=== PATIENT | female | born 1970 | race Asian ===

== ENCOUNTER 2024-04-17 19:42 | Inpatient (IN) | payer MEDICAID ==
[~2024-04-17] VITALS: Ht 154.9 cm; Wt 46.1 kg
[2024-04-17 19:42] VITALS: BP 114/80; PULSE 60; RESP 16; TEMP 98.3; O2SAT 99
[2024-04-17 20:32] LABS: BASOPHILS # (AUTO) 0.1 K/uL (0.00-0.22); BASOPHILS % (AUTO) 0.7 % (0.0-2.0); EOSINOPHILS # (AUTO) 0.1 K/uL (0-0.4); EOSINOPHILS % (AUTO) 0.8 % (0.0-4.0); HEMATOCRIT 38.9 % (36-48); HEMOGLOBIN 12.7 g/dL (12.0-16.0); LYMPHOCYTES # (AUTO) 0.7 K/uL (2.5-16.5); MEAN CORPUSCULAR HEMOGLOBIN 29 pg (27-31); MEAN CORPUSCULAR HGB CONC 33 g/dL (33-37); MEAN CORPUSCULAR VOLUME 88.6 fL (80-94); MONOCYTES # (AUTO) 0.5 K/uL (0.8-1.0); MONOCYTES % (AUTO) 5.6 % (1.7-9.3); NEUTROPHILS # (AUTO) 8.3 K/uL (1.8-7.7); NEUTROPHILS % (AUTO) 85.3 % (42.2-75.2); PLATELET COUNT (AUTO) 276 K/uL (140-450); RED BLOOD CELL COUNT(AUTO) 4.39 MIL/uL (4.20-5.40); RED CELL DISTRIBUTION WIDTH 16.3 % (11.6-13.7); WHITE BLOOD COUNT (AUTO) 9.7 K/uL (4.8-10.8)
[2024-04-17 20:34] LABS: LYMPHOCYTES % (AUTO) 7.6 % (20.5-51.1)
[2024-04-17 20:38] LABS: APPEARANCE,URINE CLEAR (CLEAR); BILIRUBIN,URINE 2+ (NEGATIVE); BLOOD, URINE TRACE-I (NEGATIVE); LEUKOCYTE ESTERASE ,URINE NEGATIVE (NEGATIVE); NITRITE, URINE NEGATIVE (NEGATIVE); PROTEIN,URINE TRACE (NEGATIVE); UGLUCOSE NEGATIVE (NEGATIVE)
[2024-04-17 20:39] LABS: COLOR,URINE ORANGE (YELLOW)
[2024-04-17 20:47] LABS: FLU A ANTIGEN negative (NEGATIVE); FLU B ANTIGEN negative (NEGATIVE)
[2024-04-17 20:48] LABS: ICTOTEST NEGATIVE (NEGATIVE)
[2024-04-17 20:49] LABS: ANION GAP 14.1 (8-16); CALCIUM 9.3 mg/dL (8.5-10.1); CARBON DIOXIDE 28.1 mmol/L (21-32); CREATININE 0.4 mg/dL (0.6-1.3); POTASSIUM 3.2 mmol/L (3.5-5.1)
[2024-04-17 20:50] LABS: BACTERIA,URINE FEW /HPF (None Seen); CALCIUM OXALATE CRYSTALS,UR 0-10 /HPF (None Seen); SQUAMOUS EPITHELIAL CELL,UR 0-3 (FEW) /LPF (0-3 (FEW)); WBC,URINE 0-5 /HPF (0-5)
[2024-04-17 20:51] LABS: AMPHETAMINE, URINE NEGATIVE ng/ml (NEG <=1000); BARBITURATE, URINE NEGATIVE ng/ml (NEG <=200); BENZODIAZEPINE, URINE NEGATIVE ng/mL (NEG <=200); CANNABINOID, URINE NEGATIVE ng/mL (NEG <=50); COCAINE, URINE NEGATIVE ng/mL (NEG <=300); OPIATE, URINE NEGATIVE ng/mL (NEG <=2000); PHENCYCLIDINE SCREEN,URINE NEGATIVE ng/mL (NEG <=25)
[2024-04-17 20:58] LABS: ALANINE AMINOTRANSFERASE 21 U/L (12-78); ALBUMIN 2.8 g/dL (3.4-5.0); ALKALINE PHOSPHATASE 111 U/L (50-136); ASPARTATE AMINOTRANSFERASE 22 U/L (15-37); BILIRUBIN,DIRECT 0.1 mg/dL (0.0-0.3); CREATINE KINASE, TOTAL 14 U/L (26-192); TOTAL BILIRUBIN 0.4 mg/dL (0.0-1.0); TOTAL PROTEIN, SERUM 6.5 g/dL (6.4-8.2)
[2024-04-17] MEDS: DEXAMETHASONE 10 MG/ML VIAL IVP ONE (21:57)
[2024-04-17] MEDS ORDERED: ONDA-188 PO (22:19)
[2024-04-17] MEDS ORDERED: IBUP-2213 PO (22:19)
[2024-04-17] MEDS ORDERED: ACET-9527 PO (22:19)
[2024-04-17] MEDS ORDERED: PANT40EC PO (22:19)
[2024-04-17] MEDS ORDERED: ACET-2619 PO (22:19)
[2024-04-17] MEDS: KCL 20 MEQ IN 100 mL PREMIX 100 ML IV ONE (22:46)
[2024-04-17] MEDS ORDERED: levETIRAcetam 100 MG/ML VIAL IV ONE (22:55)
[2024-04-17] MEDS: LEVETIRACETAM IV ONE (23:06)
[2024-04-17] MEDS: NACL 0.9% IV ONE (23:06)
[2024-04-17] MEDS: levETIRAcetam 100 MG/ML VIAL IV ONE (23:17)
[2024-04-18] VITALS (8 sets, daily range): BP systolic 107–146; BP diastolic 67–96; PULSE 61–85; RESP 16–20; TEMP 96.8–97.7; O2SAT 96–100
[2024-04-18] MEDS: DEXAMETHASONE 4 MG/ML VIAL IVP SCH (06:03)
[2024-04-18] MEDS: ENOXAPARIN 40 MG/0.4 ML SYR SUBQ SCH (09:00)
[2024-04-18] MEDS: levETIRAcetam 500 MG TAB PO SCH (10:24)
[2024-04-18] MEDS: levETIRAcetam 100 MG/ML ORASYR PO SCH (11:19)
[2024-04-18] MEDS: MORPHINE SULFATE 2 MG/ML SYR IVP PRN (13:59)
[2024-04-18] MEDS: levETIRAcetam 1,000 MG in NACL 0.9% 100 ML IV SCH (16:38)
[2024-04-19] VITALS (7 sets, daily range): BP systolic 92–143; BP diastolic 56–88; PULSE 50–79; RESP 16–19; TEMP 96.9–98; O2SAT 95–100
[2024-04-19 07:32] LABS: BASOPHILS % (AUTO) 0.1 % (0.0-2.0); HEMATOCRIT 38.5 % (36-48); HEMOGLOBIN 12.7 g/dL (12.0-16.0); LYMPHOCYTES # (AUTO) 0.5 K/uL (2.5-16.5); LYMPHOCYTES % (AUTO) 7.9 % (20.5-51.1); MEAN CORPUSCULAR HEMOGLOBIN 29 pg (27-31); MEAN CORPUSCULAR HGB CONC 33 g/dL (33-37); MEAN CORPUSCULAR VOLUME 88.9 fL (80-94); MONOCYTES # (AUTO) 0.2 K/uL (0.8-1.0); MONOCYTES % (AUTO) 3.7 % (1.7-9.3); NEUTROPHILS # (AUTO) 5.5 K/uL (1.8-7.7); NEUTROPHILS % (AUTO) 88.3 % (42.2-75.2); PLATELET COUNT (AUTO) 293 K/uL (140-450); RED BLOOD CELL COUNT(AUTO) 4.33 MIL/uL (4.20-5.40); RED CELL DISTRIBUTION WIDTH 16.2 % (11.6-13.7); WHITE BLOOD COUNT (AUTO) 6.3 K/uL (4.8-10.8)
[2024-04-19 07:54] LABS: ANION GAP 15.4 (8-16); CALCIUM 9.4 mg/dL (8.5-10.1); CARBON DIOXIDE 28.4 mmol/L (21-32); CREATININE 0.4 mg/dL (0.6-1.3); MAGNESIUM 1.9 mg/dL (1.8-2.4); PHOSPHORUS 3.5 mg/dL (2.5-4.9); POTASSIUM 3.8 mmol/L (3.5-5.1); TOTAL BILIRUBIN 0.5 mg/dL (0.0-1.0); TOTAL PROTEIN, SERUM 6.8 g/dL (6.4-8.2)
[2024-04-19] MEDS: PANTOPRAZOLE 40 MG TABEC PO SCH (08:32)
[2024-04-19] MEDS: MORPHINE SULFATE 4 MG/ML SYR IVP PRN (22:29)
[2024-04-20] VITALS (10 sets, daily range): BP systolic 92–140; BP diastolic 56–82; PULSE 57–120; RESP 17–21; TEMP 97–97.4; O2SAT 98–100
[2024-04-20] MEDS: diphenhydrAMINE 50 MG/ML VIAL IVP ONE (20:40)
[2024-04-20] MEDS: diphenhydrAMINE 50 MG/ML VIAL ONE (20:42)
[2024-04-21] VITALS (7 sets, daily range): BP systolic 113–150; BP diastolic 48–88; PULSE 56–85; RESP 18–20; TEMP 96.9–97.6; O2SAT 94–100
[2024-04-22] VITALS (7 sets, daily range): BP systolic 112–150; BP diastolic 74–85; PULSE 59–97; RESP 18–19; TEMP 96.8–97.1; O2SAT 96–100
[2024-04-23] VITALS (7 sets, daily range): BP systolic 114–141; BP diastolic 73–82; PULSE 56–102; RESP 17–18; TEMP 96.9–98; O2SAT 95–99
[2024-04-23 06:40] LABS: HEMATOCRIT 36.1 % (36-48); HEMOGLOBIN 11.8 g/dL (12.0-16.0); LYMPHOCYTES # (AUTO) 0.7 K/uL (2.5-16.5); LYMPHOCYTES % (AUTO) 7.6 % (20.5-51.1); MEAN CORPUSCULAR HEMOGLOBIN 29 pg (27-31); MEAN CORPUSCULAR HGB CONC 33 g/dL (33-37); MEAN CORPUSCULAR VOLUME 89.5 fL (80-94); MONOCYTES # (AUTO) 0.4 K/uL (0.8-1.0); MONOCYTES % (AUTO) 4.5 % (1.7-9.3); NEUTROPHILS # (AUTO) 7.9 K/uL (1.8-7.7); NEUTROPHILS % (AUTO) 87.9 % (42.2-75.2); PLATELET COUNT (AUTO) 213 K/uL (140-450); RED BLOOD CELL COUNT(AUTO) 4.04 MIL/uL (4.20-5.40); RED CELL DISTRIBUTION WIDTH 16.9 % (11.6-13.7)
[2024-04-23 07:11] LABS: ALBUMIN 2.7 g/dL (3.4-5.0); ANION GAP 12.1 (8-16); CALCIUM 8.8 mg/dL (8.5-10.1); CARBON DIOXIDE 28.7 mmol/L (21-32); CREATININE 0.5 mg/dL (0.6-1.3); POTASSIUM 3.8 mmol/L (3.5-5.1); TOTAL BILIRUBIN 0.3 mg/dL (0.0-1.0); TOTAL PROTEIN, SERUM 5.8 g/dL (6.4-8.2)
[2024-04-23] MEDS ORDERED: DEC4 PO (12:46)
[2024-04-23] MEDS ORDERED: LEVE500T9 PO (12:46)
[2024-04-24 04:00] VITALS: BP 112/70; PULSE 99; RESP 18; TEMP 97.2; O2SAT 99
[2024-04-24 08:00] VITALS: BP 133/85; PULSE 57; RESP 18; TEMP 96.9; O2SAT 98
[2024-04-24 16:00] VITALS: BP 92/64; PULSE 66; RESP 18; TEMP 97.5; O2SAT 99
== END 2024-04-24 18:35 | DRG 53 ==
LOC: MED 19:42 → MTU 04-18 00:50
PROVIDERS: ADMIT Student in an Organized Health Care Education/Training Program; ATTEND Student in an Organized Health Care Education/Training Program
PROC: 4A00X4Z Measurement of Central Nervous Electrical Activity, External Approach (ICD-10-PCS; principal; 2024-04-18)
DX: R56.9 Unspecified convulsions (principal); G93.6 Cerebral edema; E43 Unspecified severe protein-calorie malnutrition; G93.41 Metabolic encephalopathy; C79.31 Secondary malignant neoplasm of brain; E87.6 Hypokalemia; Z20.822 Contact with and (suspected) exposure to COVID-19; Z68.1 Body mass index [BMI] 19.9 or less, adult
CPT/HCPCS: 36415; 70450; 71045; 80048; 80053; 80076; 80305; 81001; 82550; 83735; 84100; 84484; 85025; 87081; 93005; 95816; 96365; 96375; 99291; J1100; J1200; J1650; J1953; J2270; J3480; J7060; Q0092